=== PATIENT | male | born 1995 | race Caucasian/White ===

== ENCOUNTER 2016-10-11 04:05 | Emergency (ER) | payer SELFPAY ==
[2016-10-11 04:44] VITALS: RESP 16; TEMP 97.9
--- NOTE | 2016-10-11 04:48 | EDPHY ---
H & P Time Seen by Provider: 10/11/16 04:33 HPI/ROS: Chief complaint: Alcohol intoxication, fall HPI: 21-year-old male who [facility] [place]. At the arc use witnessed to have slumped over id chair and may have fallen over and struck his head. He was then found to be unresponsive. On EMS arrival initially he was difficult to arouse. On arrival to the emergency department he is awake and alert and answering questions. Patient admits to drinking alcohol heavily yesterday and today. Denies any headache. No numbness weakness. No nausea or vomiting. No vision changes or hearing changes. No neck pain. No chest pain. No abdominal pain. ROS: 10 point Review of Systems is negative except as noted in the HPI. Past medical history: None Medications: None Allergies: None Social history positive for smoking, positive for drinking alcohol Physical exam: Gen: Awake, Alert, No Distress HEENT: head is atraumatic Nose: no rhinorrhea Eyes: PERRLA, EOMI Mouth: Moist mucosa Neck: Supple, no JVD, nontender Chest: nontender, lungs clear to auscultation Heart: S1, S2 normal, no murmur Abd: Soft, non-tender, no guarding Back: no CVA tenderness, no midline tenderness Ext: no edema, non-tender Skin: no rash Neuro: CN II-XII intact, Sensation grossly intact, Strength 5/5 in bilateral upper and lower extremities Constitutional: Initial Vital Signs Temperature (C) 36.6 C 10/11/16 04:42 Heart Rate 75 10/11/16 04:42 Respiratory Rate 16 10/11/16 04:42 Blood Pressure 119/28 L 10/11/16 04:42 O2 Sat (%) 97 10/11/16 04:42 O2 Delivery Mode Room Air Allergies/Adverse Reactions: Penicillins Allergy (Verified 10/11/16 04:41) Home Medications: Medication Instructions Recorded NK [No Known Home Meds] 10/11/16 Medical Decision Making ED Course/Re-evaluation: Intoxicated male who had slumped over and headed. Of unresponsiveness. There is no obvious signs of trauma. He has no tenderness on his scalp. His physical exam is unremarkable. He is awake and alert and conversant to his emergency department stay. Will discharge back to the [facility]. Departure - Departure Disposition: Home, Routine, Self-Care Clinical Impression: Alcohol intoxication Condition: Good Instructions: Alcohol Intoxication (ED) Additional Instructions: Try to cut down on your alcohol consumption. Referrals: NONE *PRIMARY CARE P,. [Primary Care Provider] - As per Instructions
[2016-10-11 05:06] VITALS: BP 108/92; PULSE 98; O2SAT 96
== END 2016-10-11 05:05 | disposition home or self-care (01) ==
DX: F10.129 Alcohol abuse with intoxication, unspecified (principal); F17.200 Nicotine dependence, unspecified, uncomplicated